=== PATIENT | male | born 1990 | race Caucasian/White ===

== ENCOUNTER 2017-02-10 13:27 | Emergency (ER) | payer SELFPAY ==
[2017-02-10 13:32] VITALS: BP 124/71; PULSE 75; TEMP 98.3; BMI 27.3
== END 2017-02-10 15:41 | disposition left against medical advice (07) ==
LOC: JERFT 13:27
DX: Z53.21 Procedure and treatment not carried out due to patient leaving prior to being seen by health care provider (principal)
CPT/HCPCS: 99281-25

== ENCOUNTER 2017-02-22 22:56 | Emergency (ER) | payer SELFPAY ==
[2017-02-22 23:08] VITALS: BP 135/73; PULSE 73; TEMP 98.2; BMI 27.6
[2017-02-23] MEDS ORDERED: IBUPROFEN 600 MG TABLET (FP) PO STA (00:50)
--- NOTE | 2017-02-23 00:50 | PDOC ---
History of Present Illness - General History Source: Patient Exam Limitations: No Limitations - History of Present Illness Initial Comments: 02/23/17 01:00 The patient is a 27 year old male, with no significant past medical history who presents to the emergency department with lower back pain today. Patient reports heavy lifting for work and since then has been experiencing this pain. Patient denied any trauma to his lower back. Patient denied any urinary or bowel incontinence during this episode. Patient denied any paresthesias to his lower extremities. Patient also reports he is anxious and feel like his heart is racing. Patient reports to the ED for further evaluation. He denies chest pain, headache or dizziness. He denies fever, chills, abdominal pain, nausea, vomit, diarrhea or constipation. He denies dysuria, frequency, urgency or hematuria. <Ekaterina Cruz - Last Filed: 02/23/17 01:00> - General History Source: Patient <Alexis Klein - Last Filed: 02/23/17 02:03> - General Chief Complaint: Shortness of Breath Stated Complaint: S.O.B/ BACK PAIN Time Seen by Provider: 02/23/17 00:49 Past History <Ekaterina Cruz - Last Filed: 02/23/17 01:00> - Suicide/Smoking/Psychosocial Hx Smoking History: Never smoked Hx Alcohol Use: No Drug/Substance Use Hx: No Substance Use Type: None <Alexis Klein - Last Filed: 02/23/17 02:03> - Past Medical History Allergies/Adverse Reactions: Allergies Allergy/AdvReac Type Severity Reaction Status Date / Time No Known Allergies Allergy Verified 02/10/17 13:32 Home Medications: Ambulatory Orders NK [No Known Home Medication] 12/29/15 Review of Systems - Review of Systems Able to Perform ROS?: Yes Comments:: 02/23/17 01:00 GENERAL/CONSTITUTIONAL: No fever or chills. No weakness. HEAD, EYES, EARS, NOSE AND THROAT: No change in vision. No ear pain or discharge. No sore throat. GASTROINTESTINAL: No nausea, vomiting, diarrhea or constipation. GENITOURINARY: No dysuria, frequency, or change in urination. CARDIOVASCULAR: +chest palpitations. No chest pain or shortness of breath. RESPIRATORY: No cough, wheezing, or hemoptysis. MUSCULOSKELETAL: +lower back pain. No joint or muscle swelling or pain. No neck or back pain. SKIN: No rash NEUROLOGIC: No headache, vertigo, loss of consciousness, or change in strength/ sensation. ENDOCRINE: No increased thirst. No abnormal weight change. HEMATOLOGIC/LYMPHATIC: No anemia, easy bleeding, or history of blood clots. ALLERGIC/IMMUNOLOGIC: No hives or skin allergy. <Ekaterina Cruz - Last Filed: 02/23/17 01:00> *Physical Exam - Vital Signs Last Vital Signs Temp Pulse Resp BP Pulse Ox 98.2 F 73 18 135/73 98 02/22/17 23:01 02/22/17 23:01 02/22/17 23:01 02/22/17 23:01 02/22/17 23:01 - Physical Exam Comments: 02/23/17 01:00 GENERAL: Awake, alert, and fully oriented, in no acute distress HEAD: No signs of trauma EYES: PERRLA, EOMI, sclera anicteric, conjunctiva clear ENT: Auricles normal inspection, hearing grossly normal, nares patent, oropharynx clear without exudates. Moist mucosa NECK: Normal ROM, supple, no lymphadenopathy, JVD, or masses LUNGS: Breath sounds equal, clear to auscultation bilaterally. No wheezes, and no crackles HEART: Regular rate and rhythm, normal S1 and S2, no murmurs, rubs or gallops ABDOMEN: Soft, nontender, normoactive bowel sounds. No guarding, no rebound. No masses EXTREMITIES: Normal range of motion, no edema. No clubbing or cyanosis. No cords, erythema, or tenderness NEUROLOGICAL: Cranial nerves II through XII grossly intact. Normal speech, normal gait SKIN: Warm, Dry, normal turgor, no rashes or lesions noted. <Ekaterina Cruz - Last Filed: 02/23/17 01:00> - Vital Signs Last Vital Signs Temp Pulse Resp BP Pulse Ox 98.2 F 73 18 135/73 98 02/22/17 23:01 02/22/17 23:01 02/22/17 23:01 02/22/17 23:01 02/22/17 23:01 <Alexis Klein - Last Filed: 02/23/17 02:03> ED Treatment Course - LABORATORY CBC & Chemistry Diagram: 02/23/17 01:04 02/23/17 01:04 <Alexis Klein - Last Filed: 02/23/17 02:03> Medical Decision Making - Medical Decision Making 02/23/17 01:56 Dr. Klein: The scribe's documentation has been prepared under my direction and personally reviewed by me in its entirery. I confirm that the note above accurately reflects all work, treatment, procedures, and medical decision making performed by me. <Alexis Klein - Last Filed: 02/23/17 02:03> *DC/Admit/Observation/Transfer - Attestations Scribe Attestion: 02/23/17 01:00 Documentation prepared by Ekaterina Cruz, acting as medical i d sales for Alexis Klein DO. <Ekaterina Cruz - Last Filed: 02/23/17 01:00> - Discharge Dispostion Admit: No <Alexis Klein - Last Filed: 02/23/17 02:03> Diagnosis at time of Disposition: Back pain Qualifiers: Back pain location: low back pain Chronicity: acute - Discharge Dispostion Disposition: HOME Condition at time of disposition: Stable - Referrals Referrals: Yoanna Marie MD [Staff Physician] - Keon Funez MD., [Staff Physician] - - Patient Instructions Printed Discharge Instructions: DI for Low Back Pain Print Language: BURKINAN
[2017-02-23] MEDS ORDERED: IBUPROFEN 600 MG TABLET (FP) PO ONE (00:59)
[2017-02-23 01:14] LABS: BASOPHIL 1.2 % (0-2.0); EOSINOPHIL 1.6 % (0-4.5); MCH 31.1 pg (25.7-33.7); MCHC 34.1 g/dl (32.0-35.9); MEAN CELL VOLUME 91.1 fl (80-96); MEAN PLT VOLUME 8.7 fl (7.5-11.1); NEUTROPHILS 68.2 % (42.8-82.8); PLATELET COUNT 221 K/MM3 (134-434); RDW 13.1 % (11.9-15.9); WHITE BLOOD COUNT 6.1 K/mm3 (4.0-10.0)
[2017-02-23 01:39] LABS: ALBUMIN 3.9 g/dl (3.4-5.0); ANION GAP 10 (8-16); BILIRUBIN,TOTAL 0.4 mg/dL (0.2-1.0); CALCIUM 8.8 mg/dL (8.5-10.1); CO2 27 mmol/L (21-32); CREATININE 0.8 mg/dL (0.7-1.3); GLUCOSE,RANDOM 107 mg/dL (74-106); SGOT/AST 16 U/L (15-37); SGPT/ALT 32 U/L (12-78); TOT PROT 6.5 g/dl (6.4-8.2)
[2017-02-23 01:40] LABS: ALK PHOS 123 U/L (45-117)
== END 2017-02-23 02:32 | disposition home or self-care (01) ==
LOC: JER 22:56
DX: M54.5 Low back pain (principal)
CPT/HCPCS: 36415; 80053; 85025; 99283-25

== ENCOUNTER 2018-04-06 12:10 | Emergency (ER) | payer SELFPAY ==
[2018-04-06 12:24] VITALS: BP 154/87; PULSE 64; TEMP 98.6; BMI 28.7
--- NOTE | 2018-04-06 13:45 | PDOC ---
History of Present Illness - General Chief Complaint: Rash Stated Complaint: RASH Time Seen by Provider: 04/06/18 12:52 History Source: Patient Exam Limitations: No Limitations - History of Present Illness Initial Comments: 04/06/18 13:30 27-year-old male presents to the emergency room with complaints of pruritic rash to his arms, neck and face for the past 2 days. Patient also states 3 days prior to his back was itchy but has resolved. Patient denies recent travel, recent outdoor work, fever, or previous rash. Timing/Duration: reports: other Severity: Yes: mild Location: reports: none Associated Symptoms: reports: rash Past History - Travel Traveled outside of the country in the last 30 days: No - Past Medical History Allergies/Adverse Reactions: Allergies Allergy/AdvReac Type Severity Reaction Status Date / Time No Known Allergies Allergy Verified 04/06/18 12:24 Home Medications: Ambulatory Orders NK [No Known Home Medication] 12/29/15 COPD: No - Suicide/Smoking/Psychosocial Hx Smoking History: Never smoked Have you smoked in the past 12 months: No Information on smoking cessation initiated: No Hx Alcohol Use: Yes Drug/Substance Use Hx: No Substance Use Type: Alcohol Patient Lives Alone: No Lives with/in: spouse/SO Review of Systems - Review of Systems Able to Perform ROS?: Yes Constitutional: No: Symptoms Reported HEENTM: No: Symptoms Reported Integumentary: Yes: Pruritus, Rash Neurological: No: Symptoms reported Endocrine: No: Symptoms Reported Hematologic/Lymphatic: No: Symptoms Reported *Physical Exam - Vital Signs Last Vital Signs Temp Pulse Resp BP Pulse Ox 98.6 F 64 17 154/87 100 04/06/18 12:22 04/06/18 12:22 04/06/18 12:22 04/06/18 12:22 04/06/18 12:22 - Physical Exam General Appearance: Yes: Nourished, Appropriately Dressed. No: Apparent Distress HEENT: positive: EOMI Neck: positive: Supple Respiratory/Chest: positive: Lungs Clear, Normal Breath Sounds. negative: Respiratory Distress, Accessory Muscle Use Cardiovascular: positive: Regular Rhythm, Regular Rate. negative: Murmur Gastrointestinal/Abdominal: positive: Soft. negative: Tenderness Integumentary: positive: Rash (Erythematous papular rash to bilateral arms, upper back, neck and cheeks. No increased warmth no edema ) Neurologic: positive: Motor Strength 5/5 (ambulatory) Medical Decision Making - Medical Decision Making 04/06/18 13:46 CC: pruritc rash x 3 days Exam: papular rash to upper body Plan: dph and prednisone *DC/Admit/Observation/Transfer Diagnosis at time of Disposition: Rash - Discharge Dispostion Disposition: HOME Condition at time of disposition: Good - Referrals - Patient Instructions Printed Discharge Instructions: DI for Rash Additional Instructions: Please take medication as needed - Post Discharge Activity
== END 2018-04-06 13:51 | disposition home or self-care (01) ==
LOC: JERFT 12:10
DX: R21 Rash and other nonspecific skin eruption (principal)
CPT/HCPCS: 99281-25

== ENCOUNTER 2020-10-07 14:22 | Emergency (ER) | payer OTHER ==
[2020-10-07 14:31] VITALS: BP 147/88; PULSE 86; TEMP 98.3; BMI 27.3
[2020-10-07] MEDS ORDERED: FOLIC ACID INJECTION - 1 MG, THIAMINE HCL 100 MG, MULTIVIT INJECTION ADULT 10 ML in SOD... IVPB ONE (15:15)
[2020-10-07] MEDS ORDERED: MAG HYDROX/AL HYDROX/SIMETH -MYLANTA- ORAL SUSPENSION PO ONE (15:26)
[2020-10-07] MEDS ORDERED: PANTOPRAZOLE SODIUM 40 MG VIAL IVPUSH ONE (15:27)
[2020-10-07 15:47] LABS: BASO % 0.8 % (0-2.0); EOS % 0.3 % (0-4.5); HEMATOCRIT 47.2 % (35.4-49); HEMOGLOBIN 16.1 GM/dL (11.7-16.9); LYMPH % 15.3 % (8-40); MCH 31.9 pg (25.7-33.7); MCHC 34.2 g/dl (32.0-35.9); MEAN CELL VOLUME 93.1 fl (80-96); MEAN PLT VOLUME 8.8 fl (7.5-11.1); MONO % 6.1 % (3.8-10.2); NEUT % 77.5 % (42.8-82.8); PLATELET COUNT 239 K/MM3 (134-434); RBC 5.07 M/mm3 (4.00-5.60); RDW 12.9 % (11.9-15.9); WHITE BLOOD COUNT 6.7 K/mm3 (4.0-10.0)
[2020-10-07 16:01] LABS: MAGNESIUM 2.2 mg/dL (1.8-2.4)
[2020-10-07 16:02] LABS: CALCIUM 9.4 mg/dL (8.5-10.1)
[2020-10-07 16:03] LABS: ALBUMIN 4.8 g/dl (3.4-5.0); BLOOD UREA NITROGEN 13.2 mg/dL (7-18)
[2020-10-07 16:05] LABS: CREATININE 0.8 mg/dL (0.55-1.3)
[2020-10-07 16:06] LABS: PHOSPHOROUS 3.8 mg/dL (2.5-4.9)
[2020-10-07 16:07] LABS: TOT PROT 7.7 g/dl (6.4-8.2)
[2020-10-07 16:08] LABS: BILIRUBIN,TOTAL 0.4 mg/dL (0.2-1)
[2020-10-07] MEDS ORDERED: MAG HYDROX/AL HYDROX/SIMETH 30 ML UNIT-DOSE CUP ONE (16:29)
[2020-10-07] MEDS ORDERED: PANTOPRAZOLE SODIUM 40 MG VIAL ONE (16:30)
== END 2020-10-07 17:52 | disposition home or self-care (01) ==
LOC: JER 14:22
PROC: 3E033GC Introduction of Other Therapeutic Substance into Peripheral Vein, Percutaneous Approach (ICD-10-PCS; principal; 2020-10-07)
PROC: 3E033GC Introduction of Other Therapeutic Substance into Peripheral Vein, Percutaneous Approach (ICD-10-PCS; 2020-10-07)
DX: R10.13 Epigastric pain (principal)
CPT/HCPCS: 36415; 76705-TC; 80053; 82550; 82553; 83690; 83735; 84100; 85025; 99284-25; C9803; U0003; U0005

== ENCOUNTER 2023-08-21 18:30 | Emergency (ER) | payer OTHER ==
[2023-08-21 18:41] VITALS: BP 125/79; PULSE 68; RESP 18; TEMP 98; BMI 26.5
[2023-08-21 19:01] LABS: PH,URINE 7.5 (5.0-8.0); URINE APPEARANCE CLEAR; URINE BILIRUBIN NEGATIVE (NEGATIVE); URINE COLOR YELLOW; URINE GLUCOSE (UA) NEGATIVE (NEGATIVE); URINE KETONE NEGATIVE (NEGATIVE); URINE LEUK ESTERASE NEGATIVE (NEGATIVE); URINE NITRITE NEGATIVE (NEGATIVE); URINE PROTEIN NEGATIVE (NEGATIVE)
== END 2023-08-21 20:03 | disposition home or self-care (01) ==
LOC: JERFT 18:30
DX: R35.0 Frequency of micturition (principal); M79.604 Pain in right leg; R45.82 Worries
CPT/HCPCS: 36415; 81003; 87086; 87491; 87591; 99283-25

== ENCOUNTER 2024-03-14 17:44 | Emergency (ER) | payer OTHER ==
[2024-03-14 17:51] VITALS: BP 129/94; PULSE 64; RESP 20; TEMP 97.7; BMI 28.3
[2024-03-14] MEDS ORDERED: FLUORESCEIN NA 1 EA STRIP ONE (18:19)
[2024-03-14] MEDS ORDERED: TETRACAINE 0.5% OPHTH SOLN 2 ML BOTTLE ONE (18:19)
[2024-03-14] MEDS: TETRACAINE 0.5% OPHTH SOLN 2 ML BOTTLE OD ONE (19:08)
[2024-03-14] MEDS: FLUORESCEIN NA 1 EA STRIP OD ONE (19:09)
[2024-03-14 20:03] LABS: HIV INTERPRETATION NEGATIVE (NEGATIVE)
== END 2024-03-14 19:20 | disposition home or self-care (01) ==
LOC: JER 17:44
DX: H10.31 Unspecified acute conjunctivitis, right eye (principal); H01.001 Unspecified blepharitis right upper eyelid; H00.011 Hordeolum externum right upper eyelid; K29.70 Gastritis, unspecified, without bleeding; R10.10 Upper abdominal pain, unspecified
CPT/HCPCS: 36415; 86803; 87389; 99283-25